=== PATIENT | male | born 1970 | race Caucasian/White ===

== ENCOUNTER 2016-10-12 15:37 | Emergency (ER) | payer MEDICARE, OTHER ==
--- NOTE | ~2016-10-12 | CR133 ---
[facility] A Service of [facility] RADIOLOGY TEXT RESULTS PATIENT: LOPEZ BAR LOCATION: [facility] : [birth year] UNIT #: [id number] AGE: [address]: JUDY GLASER SEX: M ORDER DR: [id number] [facility] [address] [place], [place] [address] [id number] E MR#: [id number] Acc #: [id number] NAME: LOPEZ BAR. : 1970 SEX: M STUDY DATE/TIME: 10/12/2016 16:19 UNIT: [facility] ROOM: STUDY DESCRIPTION: CR Forearm 2 View Rt Attending Physician: Judy Glaser Aprn Ordering Physician: Americo De La O M.D. MEDICAL IMAGING REPORT This report is preliminary unless electronic signature is present EXAM 2 views right forearm 10/12/2016 HISTORY 46-year-old male with right forearm pain today after fall. COMPARISON Right elbow radiographs 06/11/2017, 14:30. FINDINGS There is suggestion of anterior elbow joint effusion on the lateral radiograph, which was also questioned on the dedicated elbow radiograph of the same date. However, no acute displaced fracture is seen. Occult nondisplaced fracture not excluded. The remainder of the right forearm appears unremarkable. More specifically, wrist joint appears intact. The elbow and wrist joints maintain satisfactory alignment. IMPRESSION 1. Questionable anterior joint effusion of the elbow. Although no displaced fracture is seen, an occult fracture cannot be excluded. Dedicated CT or MRI may prove helpful for further evaluation if deemed clinically appropriate for this patient. 2. Remainder of the right forearm is within normal limits. Dictated by... Antonia Hernandez M.D. THIS IS AN ELECTRONICALLY VERIFIED REPORT Antonia Hernandez M.D. at 10/13/2016 8:42 AM LLH/pcl [facility] A Service of [facility] RADIOLOGY TEXT RESULTS PATIENT: LOPEZ BAR LOCATION: [facility] : [birth year] UNIT #: [id number] AGE: [address]: JUDY GLASER SEX: M ORDER DR: TD: 10/12/2016 22:40 JOB #: [id number] MEDICAL IMAGING REPORT COPY
--- NOTE | ~2016-10-12 | CR78 ---
[facility] A Service of [facility] & [facility] RADIOLOGY TEXT RESULTS PATIENT: LOPEZ BAR LOCATION: [facility] : 66 UNIT #: [id number] AGE: [address]: JUDY GLASER SEX: M ORDER DR: [id number] [facility] [address] [place], [place] [address] [id number] E MR#: [id number] Acc #: [id number] NAME: LOPEZ BAR. : 1970 SEX: M STUDY DATE/TIME: 10/12/2016 16:20 UNIT: [facility] ROOM: STUDY DESCRIPTION: CR Clavicle Comp Rt Attending Physician: Judy Glaser Aprn Ordering Physician: Americo De La O M.D. MEDICAL IMAGING REPORT This report is preliminary unless electronic signature is present EXAM Right clavicle 10/12/2016 HISTORY 46-year-old male with right clavicle pain status post fall today. COMPARISON Right shoulder same date. FINDINGS 2 views of the right clavicle demonstrate no acute fracture or dislocation. Mild degenerative change of the acromioclavicular joint. IMPRESSION No acute fracture or dislocation. Mild arthrosis of the acromioclavicular joint. Dictated by... Vince Dueñas M.D. THIS IS AN ELECTRONICALLY VERIFIED REPORT Vince Dueñas M.D. at 10/14/2016 3:57 PM RYAN/kendra TD: 10/12/2016 22:58 JOB #: [id number] MEDICAL IMAGING REPORT COPY
--- NOTE | ~2016-10-12 | CR94 ---
[facility] A Service of [facility] RADIOLOGY TEXT RESULTS PATIENT: LOPEZ BAR LOCATION: [place] : [birth year] UNIT #: [id number] AGE: [address]: JUDY GLASER SEX: M ORDER DR: [id number] [facility] [address] [place], [place] [address] [id number] E MR#: [id number] Acc #: [id number] NAME: LOPEZ BAR. : 1970 SEX: M STUDY DATE/TIME: 10/12/2016 14:30 UNIT: [facility] ROOM: STUDY DESCRIPTION: CR Elbow Min 3 Views Rt Attending Physician: Judy Glaser Aprn Ordering Physician: Juan Luis Alva M.D. Primary Care Physician: Primary Care Physician No MEDICAL IMAGING REPORT This report is preliminary unless electronic signature is present EXAM Right elbow series, 10/12/2016 HISTORY Pain. Yesterday fell at home. Decreased range of motion. FINDINGS AP, lateral and oblique radiographs of the right elbow are presented. Normal bony mineralization. Study somewhat limited by clothing artifact overlying relevant anatomy. No displaced fractures seen. The joint spaces appear intact. On the lateral views, there is question of small effusion. This could be a reflection of patient's trauma and potentially an occult fracture. Correlate with exam and mechanism of injury. If the patient has ongoing symptoms, consider followup imaging. There is a well-corticated soft tissue calcification along the radial aspect of the proximal forearm, but there is no soft tissue defect, subcutaneous air or radiodense foreign bodies suggested. Dictated by... Ji Holland M.D. THIS IS AN ELECTRONICALLY VERIFIED REPORT Ji Holland M.D. at 10/14/2016 5:52 PM ANITRA/kole TD: 10/12/2016 21:07 JOB #: [id number] MEDICAL IMAGING REPORT COPY
--- NOTE | ~2016-10-12 | CR230 ---
[facility] A Service of [facility] & [facility] RADIOLOGY TEXT RESULTS PATIENT: LOPEZ BAR LOCATION: [facility] : [birth year] UNIT #: [id number] AGE: [address]: JUDY GLASER SEX: M ORDER DR: [id number] [facility] [address] [place], [place] [address] [id number] E MR#: [id number] Acc #: [id number] NAME: LOPEZ BAR. : 1970 SEX: M STUDY DATE/TIME: 10/12/2016 14:40 UNIT: [facility] ROOM: STUDY DESCRIPTION: CR Shoulder Min 2 View Rt Attending Physician: Judy Glaser Aprn Ordering Physician: Juan Luis Alva M.D. Primary Care Physician: Primary Care Physician No MEDICAL IMAGING REPORT This report is preliminary unless electronic signature is present EXAM Right shoulder series HISTORY Pain. Fell at home yesterday. FINDINGS AP internal, external rotation views of the right shoulder are presented with transscapular view. No traumatic fracture or malalignment. Degenerative changes in the acromioclavicular and glenohumeral joints. The periarticular soft tissues are unremarkable. The visualized right ribs are intact and visualized pulmonary parenchyma is clear. If it would assist in management, shoulder could be further evaluated on an elective basis with MRI. Dictated by... Ji Holland M.D. THIS IS AN ELECTRONICALLY VERIFIED REPORT Ji Holland M.D. at 10/14/2016 5:52 PM ANITRA/thierno TD: 10/12/2016 21:39 JOB #: [id number] MEDICAL IMAGING REPORT COPY
--- NOTE | ~2016-10-12 | CR282 ---
[facility] A Service of [facility] & [facility] RADIOLOGY TEXT RESULTS PATIENT: LOPEZ BAR LOCATION: [facility] : [birth year] UNIT #: [id number] AGE: [address]: JUDY GLASER SEX: M ORDER DR: [id number] [facility] [address] [place], [place] [address] [id number] E MR#: [id number] Acc #: [id number] NAME: LOPEZ BAR. : 1970 SEX: M STUDY DATE/TIME: 10/12/2016 14:27 UNIT: [facility] ROOM: STUDY DESCRIPTION: CR Wrist Min 3 View Rt Attending Physician: Judy Glaser Aprn Ordering Physician: Juan Luis Alva M.D. Primary Care Physician: Primary Care Physician No MEDICAL IMAGING REPORT This report is preliminary unless electronic signature is present EXAM Right wrist series, 10/12/2016 HISTORY Pain. Fell at home. Wrist, elbow, shoulder pain, decreased range of motion. FINDINGS AP, lateral and oblique radiographs of the right wrist are presented. No comparisons. No traumatic fracture or malalignment. Mild degenerative changes basal joint of the thumb. No soft tissue defect, subcutaneous air or radiodense foreign body. Dictated by... Ji Holland M.D. THIS IS AN ELECTRONICALLY VERIFIED REPORT Ji Holland M.D. at 10/14/2016 5:52 PM ANITRA/thierno TD: 10/12/2016 20:53 JOB #: [id number] MEDICAL IMAGING REPORT COPY
[~2016-10-12 15:37] MED LIST: ASPIRIN; ASPIRIN PO; ASPIRIN81 M2 PO; ATENOLOL; ATENOLOL PO; DOC-Q-LACE100 MG PO; FOLIC ACID1 MG PO; FUROSEMIDE40 MG PO; GLIPIZIDE10 MG PO; GLUCOTROL; GLUCOTROL PO; KADIAN PO; LASIX; LASIX PO; LISINOPRIL; LISINOPRIL PO; LODINE PO; LORTAB; LORTAB 10/500 T1 TAB; LORTAB PO; LYRICA; METFORMIN; MULTI-DAY VITAM1 TAB PO; MULTI-VITAMIN1 TAB; NEURONTIN300 MG PO; NEURONTIN600 MG PO; OXYCODONE HCL15 MG PO; OXYCODONE15 MG PO; PRILOSEC PO; TOPROL XL50 MG PO; VIT B-12 IM; WELCHOL625 MG
[2016-10-12 17:25] LABS: URINE SOURCE CLEAN CATCH
[2016-10-12 17:32] LABS: URINE APPEARANCE CLEAR; URINE BILIRUBIN NEG (NEG); URINE BLOOD NEG (NEG); URINE COLOR YELLOW; URINE GLUCOSE 250 MG/DL (NEG); URINE KETONE NEG (NEG); URINE LEUKOCYTE ESTERASE NEG (NEG); URINE NITRATE NEG (NEG); URINE PROTEIN NEG (NEG); URINE SPECIFIC GRAVITY 1.014 (1.003-1.035)
[2016-10-12 17:35] LABS: CULTURE INDICATED? NO
== END 2016-10-12 19:32 | disposition home or self-care (01) ==
LOC: CFTX 15:37
PROVIDERS: Nurse Practitioner Family
DX: S42.401A Unspecified fracture of lower end of right humerus, initial encounter for closed fracture (principal); I10 Essential (primary) hypertension; E11.9 Type 2 diabetes mellitus without complications; W22.8XXA Striking against or struck by other objects, initial encounter; Y92.009 Unspecified place in unspecified non-institutional (private) residence as the place of occurrence of the external cause; H54.0 Blindness, both eyes; Z88.2 Allergy status to sulfonamides; Z88.1 Allergy status to other antibiotic agents; Z88.8 Allergy status to other drugs, medicaments and biological substances
CPT/HCPCS: 73000; 73030; 73080; 73090; 73110; 81003; 99284